=== PATIENT | male | born 1980 | race Caucasian/White ===

== ENCOUNTER 2018-06-07 14:47 | Emergency (ER) | payer BC, OTHER ==
[~2018-06-07] VITALS: Ht 172.7 cm; Wt 65.8 kg
[2018-06-07 15:02] VITALS: BP 134/84
[2018-06-07] MEDS ORDERED: NORFLEX100 MG PO (15:26)
[2018-06-07] MEDS ORDERED: MOBIC7.5 MG PO (15:27)
== END 2018-06-07 15:48 | disposition home or self-care (01) ==
LOC: ER 14:47
DX: S39.012A Strain of muscle, fascia and tendon of lower back, initial encounter (principal); J45.909 Unspecified asthma, uncomplicated; F17.210 Nicotine dependence, cigarettes, uncomplicated; X58.XXXA Exposure to other specified factors, initial encounter; Y93.89 Activity, other specified; Y92.89 Other specified places as the place of occurrence of the external cause; Y99.8 Other external cause status

== ENCOUNTER 2018-11-27 01:05 | Emergency (ER) | payer OTHER ==
[~2018-11-27] VITALS: Ht 175.3 cm; Wt 79.4 kg
[~2018-11-27 01:05] MED LIST: MOBIC7.5 MG PO; NORFLEX100 MG PO
[2018-11-27 01:20] VITALS: BP 134/78
== END 2018-11-27 01:40 | disposition left against medical advice (07) ==
LOC: ER 01:05
DX: K08.89 Other specified disorders of teeth and supporting structures (principal); Z53.21 Procedure and treatment not carried out due to patient leaving prior to being seen by health care provider